=== PATIENT | female | born 1965 | race African-American/Black ===

== ENCOUNTER 2016-11-04 04:08 | Inpatient (IN) ==
[2016-11-04] MEDS ORDERED: ONDANSETRON 4 MG/2 ML VIAL IV STA (05:13)
[2016-11-04] MEDS ORDERED: SODIUM CHLORIDE 0.9% 1,000 ML IV STA (05:13)
[2016-11-04] MEDS ORDERED: ONDANSETRON 4 MG/2 ML VIAL ONE (05:30)
--- NOTE | 2016-11-04 05:36 | Emergency Department Note ---
Von Rinaldi Kasabria, am scribing for, and in the presence of, Jaziel Ivan MD 05:17. Moncho Rinaldi Robert M, MD, personally performed the services described in this documentation, ascribed by Val Longoria in my presence, and it is both accurate and complete . Arrival - Arrival Chief Complaint: Abdominal / Flank Pain Stated Complaint: pain in stomach ED Nursing Triage Note: C/C upper abd pain, N/V, hx of pancreatitis Mode of Arrival: Ambulatory Limitations: No Limitations Source: Patient Time Seen by Provider: 11/04/16 05:11 - History of Present Illness HPI Narrative: Pt is a 51 y/o black female presenting to the ED with c/o epigastric tenderness , nausea, and vomiting that onset Wednesday. She states she was given steroids for her cough and congestion on Wednesday. She denies fever, chills, diarrhea, back pain, hematochezia, and dysuria. Pt has a PMHx of pancreatitis. She has a social hx of smoking. Her PMHx consist of diabetes and HTN in which she is compliant with her medications. Consistency: constant Severity: moderate Allergies/Adverse Reactions: Allergies Allergy/AdvReac Type Severity Reaction Status Date / Time No Known Allergies Allergy Verified 11/04/16 04:23 Home Medications: Home Medications Medication Instructions Recorded Confirmed Type Insulin Detemir [Levemir] 60 unit SUBCUT DAILY 11/03/16 11/04/16 History Metformin HCl 850 mg PO TID 11/03/16 11/04/16 History Citalopram [CeleXA] 40 mg PO DAILY 11/04/16 11/04/16 History Gabapentin 100 mg PO TID 11/04/16 11/04/16 History Lisinopril/Hydrochlorothiazide 1 each PO DAILY 11/04/16 11/04/16 History [Lisinopril-Hctz 10-12.5 mg Tab] Loratadine 10 mg PO DAILY PRN 11/04/16 11/04/16 History Omeprazole [Prilosec] 40 mg PO BEDTIME 11/04/16 11/04/16 History Pravastatin [Pravachol] 40 mg PO BEDTIME 11/04/16 11/04/16 History Review of System - Review of System 12 point system: reviewed and no additional remarkable complaints except as stated - Review of System Constitutional: Absent: chills, fever, weakness Eyes: Absent: vision change Head/Ears/Nose/Throat: Absent: earache, nasal drainage, sore throat Respiratory: Absent: cough, wheezing Cardiovascular: Absent: chest pain, dyspnea on exertion, syncope Gastrointestinal: Present: abdominal pain (mild epigastric tenderness ), nausea , vomiting. Absent: diarrhea Genitourinary female: Absent: dysuria Musculoskeletal: Absent: arm pain, back pain, leg pain, neck pain Skin: Absent: rash Neurological: Absent: headache, weakness, confusion, abnormal gait, vertigo Psychiatric: Absent: anxiety Endocrine: Absent: fatigue Hematological/Lymphatic: Absent: easy bleeding Allergic/Immunologic: Absent: facial swelling Medical,Surgical,& Family Hx - Medical History Cardio: History of: Hypertension Endocrine: History of: Diabetes Mellitus (IDDM), Diabetes Mellitus (NIDDM), Dyslipidemia Gastrointestinal: History of: GI Problems (pancreatitis) - Social History Smoking Status: Smoker, status unknown Frequency of Alcohol Use: Occasionally Type of Drug Use: Marijuana Exam Vital Signs: Vital Signs Temperature 97.5 F L 11/04/16 04:25 Pulse Rate 82 11/04/16 04:25 Respiratory Rate 16 11/04/16 04:25 Blood Pressure 100/63 11/04/16 04:25 O2 Sat by Pulse Oximetry 97 11/04/16 04:18 - General General appearance: alert, in no apparent distress - Head Head exam: Present: atraumatic, normocephalic, normal inspection - Eye Eye exam: Present: normal appearance, PERRL, EOMI - ENT ENT exam: Present: normal exam, normal oropharynx, mucous membranes moist, TM's normal bilaterally, normal external ear exam - Neck Neck exam: Present: normal inspection, full ROM, trachea midline. Absent: tenderness - Chest Chest inspection: Present: normal inspection, symmetric chest wall rise. Absent : tenderness - Respiratory Respiratory exam: Present: normal lung sounds bilaterally - Cardiovascular Cardiovascular exam: Present: regular rate, normal rhythm, normal heart sounds. Absent: bradycardia, tachycardia - Abdominal Exam Abdominal exam: Present: soft, tenderness (mild epigastric ), normal bowel sounds. Absent: distention, guarding, rebound - Extremities Exam Extremities exam: Present: normal inspection, full ROM, normal capillary refill. Absent: tenderness, pedal edema, calf tenderness - Back Exam Back exam: Present: normal inspection, full ROM. Absent: tenderness - Neurological Exam Neurological exam: Present: alert, oriented X3, CN II-XII intact, normal gait, reflexes normal - Psychiatric Psychiatric exam: Present: normal affect, normal mood - Skin Skin exam: Present: warm, dry, intact, normal color. Absent: rash, diaphoresis , erythema Course - Consultations Consultation #1: Dr. Kishan Padilla will evaluate and admit the patient. Time: 06:04 Results - Labs CBC & BMP: 11/04/16 04:46 11/04/16 04:38 Lab Results: I have reviewed the patients labs Labs: Lab Results WBC 12.9 T/CUMM (4-12) H 11/04/16 04:46 RBC 3.83 MC/CUMM (3.8-5.5) 11/04/16 04:46 Hgb 12.0 GM/DL (12.0-16.0) 11/04/16 04:46 Hct 36.2 VOL% (35.7-47.0) 11/04/16 04:46 MCV 94.5 FL (87-102) 11/04/16 04:46 MCH 31 PG (27-34) 11/04/16 04:46 MCHC 33.1 GM/DL (32-36) 11/04/16 04:46 RDW 13.7 % (9.3-17.3) 11/04/16 04:46 Plt Count 309 T/CUMM (130-400) 11/04/16 04:46 MPV 10.1 FL (9.6-12.0) 11/04/16 04:46 Neut % (Auto) 59.8 % (38.7-73.9) 11/04/16 04:46 Lymph % (Auto) 30.6 % (21.3-54.2) 11/04/16 04:46 [place] % (Auto) 8.3 % (1.7-12.7) 11/04/16 04:46 Eos % (Auto) 0.8 % (0.00-10.9) 11/04/16 04:46 Baso % (Auto) 0.2 % (0.0-0.8) 11/04/16 04:46 Neut # (Auto) 7.7 10*3/uL (1.4-7.4) H 11/04/16 04:46 Lymph # (Auto) 4.0 10*3/uL (1.4-4.0) 11/04/16 04:46 Kaufman # (Auto) 1.1 10*3/uL (0.11-0.8) H 11/04/16 04:46 Eos # (Auto) 0.1 10*3/uL (0.0-0.87) 11/04/16 04:46 Baso # (Auto) 0.0 10*3/uL (0.0-0.2) 11/04/16 04:46 Immature Gran % 0.3 % 11/04/16 04:46 Nucleated RBC % 0.0 /100WBC 11/04/16 04:46 Immature Gran # 0.04 # 11/04/16 04:46 Nucleated RBCs # 0.00 10*3/uL 11/04/16 04:46 Sodium 140 MMOL/L (136-145) 11/04/16 04:38 Potassium 4.0 MMOL/L (3.5-5.1) 11/04/16 04:38 Chloride 103 MMOL/L (98-107) 11/04/16 04:38 Carbon Dioxide 27 MMOL/L (21-32) 11/04/16 04:38 Anion Gap 14.0 MMOL/L (5.0-15.0) 11/04/16 04:38 BUN 17 MG/DL (7-18) 11/04/16 04:38 Creatinine 1.10 MG/DL (0.55-1.02) H 11/04/16 04:38 GFR Calculation 71 ML/MIN 11/04/16 04:38 BUN/Creatinine Ratio 15.00 RATIO (6.00-20.00) 11/04/16 04:38 Glucose 193 MG/DL (74-106) H 11/04/16 04:38 Calculated Osmolality 285.4 MOS/KG (273-304) 11/04/16 04:38 Calcium 9.6 MG/DL (8.5-10.1) 11/04/16 04:38 Magnesium 1.9 MG/DL (1.8-2.4) 11/04/16 04:38 Total Bilirubin 0.40 MG/DL (0.2-1.0) 11/04/16 04:38 AST 10 U/L (0-37) 11/04/16 04:38 ALT 18 U/L (13-56) 11/04/16 04:38 Alkaline Phosphatase 51 U/L (45-117) 11/04/16 04:38 Total Protein 8.3 G/DL (6.4-8.3) 11/04/16 04:38 Albumin 3.9 G/DL (3.4-5.0) 11/04/16 04:38 Globulin 4.4 G/DL (2.3-3.5) H 11/04/16 04:38 Albumin/Globulin Ratio 0.8 RATIO (1.1-2.2) L 11/04/16 04:38 Amylase 121 U/L (25-115) H 11/04/16 04:38 Lipase 996.0 U/L (73-393) H 11/04/16 04:38 Urine Color Yellow (Yellow) 11/04/16 04:38 Urine Appearance Slightly hazy (Clear) 11/04/16 04:38 Urine pH 5.0 (4.5-8.0) 11/04/16 04:38 Ur Specific [place] 1.011 (1.001-1.035) 11/04/16 04:38 Urine Protein Negative MG/DL 11/04/16 04:38 Urine Glucose (UA) Negative mg/dL (Negative) 11/04/16 04:38 Urine Ketones Negative mg/dL (Negative) 11/04/16 04:38 Urine Blood Negative mg/dL (Negative) 11/04/16 04:38 Urine Nitrate Negative (Negative) 11/04/16 04:38 Urine Bilirubin Negative mg/dL (Negative) 11/04/16 04:38 Urine Urobilinogen < 2.0 EU/DL (0.2-1.0) H 11/04/16 04:38 Urine Leukocytes Negative Mary/ul (Negative) 11/04/16 04:38 Urine RBC <1 /HPF (0-4) 11/04/16 04:38 Urine WBC 1 /HPF (0-6) 11/04/16 04:38 Ur Squamous Epith Cells Occasional /HPF (0-10) 11/04/16 04:38 Urine Bacteria Occasional /HPF (Few) 11/04/16 04:38 Urine Mucus Occasional /LPF (Occasional) 11/04/16 04:38 Ur Culture Indicated? Not indicated 11/04/16 04:38 Disposition Clinical Impression: Pancreatitis Case discussed with: patient, patient's family Disposition: Still a Patient Condition: Stable Instructions: Pancreatitis (ED) Time of Disposition: 06:04
[2016-11-04 05:50] LABS: Apearance,Urine Slightly Hazy (Clear); Bacteria,Urine Occasional /HPF (Few); Bilirubin,Urine Negative (Negative); Blood, Urine Negative (Negative); Glucose,Urine (UA) Negative (Negative); Ketones,Urine Negative (Negative); Mucus,Urine Occasional /LPF (Occasional); Nitrite,Urine Negative (Negative); Protein,Urine Negative; RBC,Urine <1 /HPF (0-4); Squamous Epithelial Cell,Urine Occasional /HPF (0-10); Urine Color Yellow (Yellow); Urine Specific Gravity 1.011 (1.001-1.035); Urine Urobilinogen < 2.0 EU/DL (0.2-1.0); WBC,Urine 1 /HPF (0-6)
[2016-11-04 05:51] LABS: Basophils % 0.2 % (0.0-0.8); Eosinophils # 0.1 10*3/uL (0.0-0.87); Eosinophils % 0.8 % (0.00-10.9); Hematocrit 36.2 VOL% (35.7-47.0); Immature Granulocytes % 0.3 %; Immature Granulocytes Absolute 0.04 #; Lymphocytes % 30.6 % (21.3-54.2); Mean Corpuscular HGB Conc 33.1 GM/DL (32-36); Mean Corpuscular Hemoglobin 31 PG (27-34); Mean Corpuscular Volume 94.5 FL (87-102); Mean Platelet Volume 10.1 FL (9.6-12.0); Monocytes # 1.1 10*3/uL (0.11-0.8); Monocytes % 8.3 % (1.7-12.7); Neutrophils # 7.7 10*3/uL (1.4-7.4); Neutrophils % 59.8 % (38.7-73.9); Platelet Count 309 T/CUMM (130-400); Red Blood Count 3.83 MC/CUMM (3.8-5.5); Red Cell Distribution Width 13.7 % (9.3-17.3); White Blood Count 12.9 T/CUMM (4-12)
[2016-11-04 05:57] LABS: Albumin 3.9 G/DL (3.4-5.0); Bilirubin,Total 0.4 MG/DL (0.2-1.0); Calcium 9.6 MG/DL (8.5-10.1); Magnesium 1.9 MG/DL (1.8-2.4); Osmolality,Calculated 285.4 MOS/KG (273-304); Total Protein 8.3 G/DL (6.4-8.3)
[2016-11-04] MEDS ORDERED: DEXTROSE 50% 25 GM/50 ML VIAL IV PRN (06:20)
[2016-11-04] MEDS ORDERED: GLUCAGON 1 MG VIAL IM PRN (06:20)
[2016-11-04] MEDS ORDERED: LORazepam 2 MG/1 ML VIAL IV PRN (06:20)
--- NOTE | 2016-11-04 06:30 | Hospitalist History & Physical ---
Assessment and Plan (1) Diabetes Status: Acute Current Visit: Yes (2) Hypertension Status: Acute Current Visit: Yes (3) Dyslipidemia Status: Acute Current Visit: Yes (4) Depression Status: Acute Current Visit: Yes (5) Pancreatitis Status: Acute Assessment and plan: Regarding I plan for this patient we'll be admitting her to our service. Nothing by mouth except for meds give her IV fluids check her lipase in the morning. Continue her home meds as appropriate. Hold her long-acting insulin and give sliding scale for now. Current Visit: Yes History of Present Illness Chief complaint: epigastric pain History of present illness: Ms. Wilson is a 51 year old female with past medical history of previous bouts of pancreatitis presents with abdominal pain. Patient reports that she's been having a 3 day history of this abdominal pain. She said that it reminded her of her previous bouts of pancreatitis. She has not drank in at least 2 weeks. She use to be a heavy drinker but has cut back significantly. She says that her epigastric pain gets severe at times. And causes her to have nausea and vomiting. Patient came up to the hospital for further evaluation. I was consulted to admit her Home Medications Medication Instructions Recorded Confirmed Type Insulin Detemir [Levemir] 60 unit SUBCUT DAILY 11/03/16 11/04/16 History Metformin HCl 850 mg PO TID 11/03/16 11/04/16 History Citalopram [CeleXA] 40 mg PO DAILY 11/04/16 11/04/16 History Gabapentin 100 mg PO TID 11/04/16 11/04/16 History Lisinopril/Hydrochlorothiazide 1 each PO DAILY 11/04/16 11/04/16 History [Lisinopril-Hctz 10-12.5 mg Tab] Loratadine 10 mg PO DAILY PRN 11/04/16 11/04/16 History Omeprazole [Prilosec] 40 mg PO BEDTIME 11/04/16 11/04/16 History Pravastatin [Pravachol] 40 mg PO BEDTIME 11/04/16 11/04/16 History Allergies Allergy/AdvReac Type Severity Reaction Status Date / Time No Known Allergies Allergy Verified 11/04/16 04:23 Medical,Surgical,& Family Hx - Medical History Cardio: History of: Hypertension Endocrine: History of: Diabetes Mellitus (IDDM), Diabetes Mellitus (NIDDM), Dyslipidemia Gastrointestinal: History of: GI Problems (pancreatitis) - Surgical History Additional Surgical History: None - Family History Family History: Reports;: Family Hypertension - Social History Smoking Status: Smoker, status unknown Frequency of Alcohol Use: Occasionally Type of Drug Use: Marijuana 12 point system: reviewed and no additional remarkable complaints except as stated Exam - Constitutional Vitals: Period Temp Pulse Resp BP Sys/Alegria Pulse Ox Last 24 Hr 97.5 F-97.5 F 82-82 16-16 100-100/63-63 97 General appearance: normal weight - Head Head exam: Present: normal inspection - Eye Eye exam: Present: EOMI Pupils: Present: TONJA - ENT ENT exam: Present: normal exam - Neck Neck exam: Present: normal inspection - Respiratory Respiratory exam: Present: clear to auscultation bilaterally - Cardiovascular Cardiovascular exam: Present: regular rate and rhythm - GI/Abdominal GI/Abdominal exam: Present: normal bowel sounds, tenderness (epigastric), soft. Absent: rebound - Extremities Exam Extremities exam: Present: normal inspection - Back Exam Back exam: Present: normal inspection - Neurological Exam Neurological exam: Present: alert, oriented X3 - Psychiatric Psychiatric exam: Present: normal affect Results - Labs CBC & BMP: 11/04/16 04:46 11/04/16 04:38
[2016-11-04] MEDS ORDERED: LORATADINE 10 MG TABLET PO PRN (06:34)
[2016-11-04] MEDS: SODIUM CHLORIDE 0.9% 1,000 ML IV SCH ×3 (10:48→19:13)
[2016-11-04] MEDS: GABAPENTIN 100 MG CAPSULE PO SCH ×3 (10:49→22:40)
[2016-11-04] MEDS: FOLIC ACID 1 MG TABLET PO SCH (10:49)
[2016-11-04] MEDS: CITALOPRAM 40 MG TABLET PO SCH (10:49)
[2016-11-04] MEDS: THIAMINE 100 MG TABLET PO SCH (10:49)
[2016-11-04] MEDS: MULTIVITAMIN (CENTRUM) TABLET PO SCH (10:49)
[2016-11-04] MEDS: ENOXAPARIN 40 MG/0.4 ML SYRINGE SUBCUT SCH (10:50)
[2016-11-04] MEDS: MORPHINE 2 MG/1 ML SYRINGE IV PRN ×2 (12:22→19:11)
[2016-11-04] MEDS: INSULIN REGULAR 100 UNIT/ML SUBCUT SCH ×2 (13:16→18:29)
--- NOTE | 2016-11-04 16:29 | Hospitalist Progress Note ---
Hospitalist: Subjective Interval history: Patient seen and examined did not seem exquisitely tender in her abdomen to me. Already wanted something to eat so we started her on clear liquids. Recheck her lipase in a.m. see note by partner. Exam - Constitutional Vitals: Period Temp Pulse Resp BP Sys/Alegria Pulse Ox Last 24 Hr 98.2 F-98.4 F 69-77 16-20 118-131/78-90 98-100 Results - Labs CBC & BMP: 11/04/16 04:46 11/04/16 04:38 Specialty Discharge - Follow Up or Referrals
[2016-11-04] MEDS: ONDANSETRON 4 MG/2 ML VIAL IV PRN (19:11)
[2016-11-04] MEDS ORDERED: PRAVASTATIN 40 MG TABLET PO SCH (21:00)
[2016-11-04] MEDS ORDERED: PANTOPRAZOLE 40 MG TABLET PO SCH (21:00)
[2016-11-05] MEDS: SODIUM CHLORIDE 0.9% 1,000 ML IV SCH ×2 (03:26→12:01)
[2016-11-05] MEDS: INSULIN REGULAR 100 UNIT/ML SUBCUT SCH ×3 (03:27→12:38)
[2016-11-05] MEDS: ONDANSETRON 4 MG/2 ML VIAL IV PRN ×2 (04:06→09:38)
[2016-11-05] MEDS: MORPHINE 2 MG/1 ML SYRINGE IV PRN ×2 (04:06→09:34)
[2016-11-05 06:41] LABS: Eosinophils % 0.8 % (0.00-10.9); Mean Corpuscular Hemoglobin 31 PG (27-34); Red Cell Distribution Width 13.5 % (9.3-17.3)
[2016-11-05 07:00] LABS: Basophils % 0.2 % (0.0-0.8); Eosinophils # 0.1 10*3/uL (0.0-0.87); Hematocrit 29.3 VOL% (35.7-47.0); Immature Granulocytes % 0.4 %; Immature Granulocytes Absolute 0.04 #; Lymphocytes # 3.9 10*3/uL (1.4-4.0); Lymphocytes % 37.1 % (21.3-54.2); Mean Corpuscular HGB Conc 33.1 GM/DL (32-36); Mean Corpuscular Volume 94.5 FL (87-102); Mean Platelet Volume 10.1 FL (9.6-12.0); Monocytes % 9.6 % (1.7-12.7); Neutrophils # 5.5 10*3/uL (1.4-7.4); Neutrophils % 51.9 % (38.7-73.9); Platelet Count 272 T/CUMM (130-400); White Blood Count 10.6 T/CUMM (4-12)
[2016-11-05 07:07] LABS: Hemoglobin 9.7 GM/DL (12.0-16.0)
[2016-11-05 07:26] LABS: Albumin 3.3 G/DL (3.4-5.0); Calcium 8.7 MG/DL (8.5-10.1); Potassium 4.9 MMOL/L (3.5-5.1); Total Protein 6.3 G/DL (6.4-8.3)
[2016-11-05] MEDS: GABAPENTIN 100 MG CAPSULE PO SCH (08:40)
[2016-11-05] MEDS: MULTIVITAMIN (CENTRUM) TABLET PO SCH (08:40)
[2016-11-05] MEDS: THIAMINE 100 MG TABLET PO SCH (08:40)
[2016-11-05] MEDS: FOLIC ACID 1 MG TABLET PO SCH (08:41)
[2016-11-05] MEDS: CITALOPRAM 40 MG TABLET PO SCH (08:41)
[2016-11-05] MEDS: ENOXAPARIN 40 MG/0.4 ML SYRINGE SUBCUT SCH (08:41)
[2016-11-05] MEDS ORDERED: BISACODYL 5 MG TABLET PO SCH (11:00)
[2016-11-05] MEDS ORDERED: POLYETHYLENE GLYCOL POWDER 255 GM BOTTLE PO ONE (11:00)
--- NOTE | 2016-11-05 12:14 | Discharge Summary ---
Hospital Course - Hospital Course Hospital Course: 51-year-old -[place] female who presented to the emergency room with abdominal pain. Patient has a history of alcohol abuse in the distant past but she is no longer drinking. Patient had elevated lipase on admission of 996 and was diagnosed with pancreatitis. We started her on a clear liquid diet and her lipase came down to 690. Patient is tolerating diet well and would like to go home. Patient does have insulin-dependent diabetes and blood sugars have been well managed with significantly less insulin and metformin that she is currently on. She had a recent had a steroid injection elevated her sugar thought to have inflamed her pancreatitis. I would repeat her lipid profile just to ensure that her triglycerides are well controlled as an outpatient. - Time spent with patient Time with patient DS: Less than 30 minutes Specialty Discharge - Follow Up or Referrals Discharge Plan - Discharge Data Disposition: Disch To Home/Self Care Condition at Discharge: Stable Discharge Diet: other (soft diet ) Activity: resume usual activities as tolerated Hygiene: no restrictions Weight Bearing at Discharge: full weight bearing - Discharge Medications New Multivitamin (Centrum) [Centrum Tab] 1 tablet PO DAILY tablet Folic Acid Tab 1 mg PO DAILY tablet Thiamine Tab [Vitamin B1 Tab] 100 mg PO DAILY tablet Continue Gabapentin 100 mg PO TID Pravastatin [Pravachol] 40 mg PO BEDTIME Citalopram [CeleXA] 40 mg PO DAILY HYDROcodone/ACETAMIN 10-325 [[place]anger 10-325] 1 tablet PO Q4H #30 tablet Omeprazole [Prilosec] 40 mg PO BEDTIME Loratadine 10 mg PO DAILY PRN PRN Reason: Allergy Symptoms Changed Insulin Detemir [Levemir] 20 unit SUBCUT DAILY #0 Metformin HCl 850 mg PO BID #0 Discontinued Lisinopril/Hydrochlorothiazide [Lisinopril-Hctz 10-12.5 mg Tab] 1 each PO DAILY - Follow Up or Referral Follow Up: pmd, [Other] - 2 Weeks - Forms/Instructions Instructions: Pancreatitis (ED) Exam - Constitutional Vitals: Period Temp Pulse Resp BP Sys/Alegria Pulse Ox Last 24 Hr 97.9 F-99.0 F 70-79 18-20 121-136/78-88 95-99 General appearance: normal weight, no acute distress - Respiratory Respiratory exam: Present: clear to auscultation bilaterally. Absent: rales, wheezes - Cardiovascular Cardiovascular exam: Present: regular rate and rhythm. Absent: systolic murmur - GI/Abdominal GI/Abdominal exam: Present: normal bowel sounds, soft. Absent: tenderness - Extremities Exam Extremities exam: Present: normal inspection, normal capillary refill Discharge Results Labs on day of discharge: Labs from last 24 hours 11/05/16 11/05/16 11/05/16 11:07 06:27 06:27 WBC RBC Hgb Hct MCV MCH MCHC RDW Plt Count MPV Neut % (Auto) Lymph % (Auto) [place] % (Auto) Eos % (Auto) Baso % (Auto) Neut # (Auto) Lymph # (Auto) [place] # (Auto) Eos # (Auto) Baso # (Auto) Immature Gran % Nucleated RBC % Immature Gran # Nucleated RBCs # Sodium 143 Potassium 4.9 Chloride 108 H Carbon Dioxide 23 Anion Gap 16.9 H BUN 11 Creatinine 0.80 GFR Calculation 104 BUN/Creatinine Ratio 13.00 Glucose 178 H POC Glucose 292 H Calculated Osmolality 287.0 Calcium 8.7 Total Bilirubin 1.00 AST 12 ALT 17 Alkaline Phosphatase 45 Total Protein 6.3 L Albumin 3.3 L Globulin 3.0 Albumin/Globulin Ratio 1.1 Lipase 690.0 H D 11/05/16 11/05/16 11/05/16 06:27 05:49 00:04 WBC 10.6 RBC 3.10 L Hgb 9.7 L D Hct 29.3 L MCV 94.5 MCH 31 MCHC 33.1 RDW 13.5 Plt Count 272 MPV 10.1 Neut % (Auto) 51.9 Lymph % (Auto) 37.1 [place]kes % (Auto) 9.6 Eos % (Auto) 0.8 Baso % (Auto) 0.2 Neut # (Auto) 5.5 Lymph # (Auto) 3.9 [place]kes # (Auto) 1.0 H Eos # (Auto) 0.1 Baso # (Auto) 0.0 Immature Gran % 0.4 Nucleated RBC % 0.0 Immature Gran # 0.04 Nucleated RBCs # 0.00 Sodium Potassium Chloride Carbon Dioxide Anion Gap BUN Creatinine GFR Calculation BUN/Creatinine Ratio Glucose POC Glucose 182 H 94 Calculated Osmolality Calcium Total Bilirubin AST ALT Alkaline Phosphatase Total Protein Albumin Globulin Albumin/Globulin Ratio Lipase 11/04/16 11/04/16 11/04/16 19:51 18:16 12:34 WBC RBC Hgb Hct MCV MCH MCHC RDW Plt Count MPV Neut % (Auto) Lymph % (Auto) [place] % (Auto) Eos % (Auto) Baso % (Auto) Neut # (Auto) Lymph # (Auto) [place] # (Auto) Eos # (Auto) Baso # (Auto) Immature Gran % Nucleated RBC % Immature Gran # Nucleated RBCs # Sodium Potassium Chloride Carbon Dioxide Anion Gap BUN Creatinine GFR Calculation BUN/Creatinine Ratio Glucose POC Glucose 217 H 314 H 164 H Calculated Osmolality Calcium Total Bilirubin AST ALT Alkaline Phosphatase Total Protein Albumin Globulin Albumin/Globulin Ratio Lipase DS: Provider Date of admission: 11/04/16 06:18 Primary care physician: . No PCP Attending physician on admission: Carolyn Jenkins MD Discharging clinician: Carolyn Jenkins MD
[2016-11-05 12:37] VITALS: BP 130/81
== END 2016-11-05 13:37 | disposition home or self-care (01) | DRG 440 ==
LOC: N.ED 04:08 → N.EDINP 06:18 → N.2E 06:49
PROVIDERS: ADMIT Internal Medicine; ATTEND Internal Medicine

== ENCOUNTER 2017-10-18 13:30 | Inpatient (IN) ==
[2017-10-18 14:17] LABS: Basophils % 0.3 % (0.0-0.8); Eosinophils # 0.1 10*3/uL (0.0-0.87); Eosinophils % 0.5 % (0.00-10.9); Hematocrit 36.8 VOL% (35.7-47.0); Hemoglobin 12.5 GM/DL (12.0-16.0); Immature Granulocytes % 0.3 %; Immature Granulocytes Absolute 0.03 #; Lymphocytes # 3.7 10*3/uL (1.4-4.0); Mean Corpuscular Hemoglobin 31 PG (27-34); Mean Corpuscular Volume 92.5 FL (87-102); Mean Platelet Volume 11.5 FL (9.6-12.0); Monocytes # 0.7 10*3/uL (0.11-0.8); Monocytes % 6.9 % (1.7-12.7); Platelet Count 267 T/CUMM (130-400); Red Blood Count 3.98 MC/CUMM (3.8-5.5); Red Cell Distribution Width 13.2 % (9.3-17.3); White Blood Count 9.4 T/CUMM (4-12)
[2017-10-18 14:36] LABS: Alanine Aminotransferase 14 U/L (13-56); Albumin 3.7 G/DL (3.4-5.0); Alkaline Phosphatase 58 U/L (45-117); Aspartate Amino Transferase 9 U/L (0-37); Bilirubin,Total < 0.39 MG/DL (0.2-1.0); Blood Urea Nitrogen 9 MG/DL (7-18); Calcium 9.3 MG/DL (8.5-10.1); Osmolality,Calculated 299.8 MOS/KG (273-304); Potassium 4.1 MMOL/L (3.5-5.1); Sodium 130 MMOL/L (136-145); Total Protein 7.2 G/DL (6.4-8.3)
[2017-10-18 14:38] LABS: Glucose 839 MG/DL (74-106)
[2017-10-18 15:03] LABS: Apearance,Urine CLEAR (Clear); Bilirubin,Urine Negative (Negative); Blood, Urine Negative (Negative); Glucose,Urine (UA) >=500 mg/dL (Negative); Ketones,Urine Negative (Negative); Mucus,Urine Occasional /LPF (Occasional); Nitrite,Urine Negative (Negative); Protein,Urine Negative; RBC,Urine <1 /HPF (0-4); Squamous Epithelial Cell,Urine Occasional /HPF (0-10); Urine Color Straw (Yellow); Urine Specific Gravity 1.028 (1.001-1.035); Urine Urobilinogen < 2.0 EU/DL (0.2-1.0); WBC,Urine <1 /HPF (0-6)
[2017-10-18] MEDS ORDERED: INSULIN REGULAR 100 UNIT/ML ONE (18:00)
[2017-10-18] MEDS ORDERED: INSULIN REGULAR 100 UNIT/ML SUBCUT ONE (18:00)
[2017-10-18] MEDS ORDERED: SODIUM CHLORIDE 0.9% 1,000 ML IV STA ×2 (18:05→18:14)
[2017-10-18] MEDS ORDERED: SODIUM CHLORIDE 0.9% 1,000 ML IV ONE (19:30)
[2017-10-18] MEDS ORDERED: MAGNESIUM SULF RIDER 2 GM in PREMIX 1 EACH IV PRN (19:30)
[2017-10-18] MEDS ORDERED: INSULIN REGULAR 100 UNIT/ML IV ONE (19:30)
[2017-10-18] MEDS ORDERED: SODIUM BICARB INJ 100 MEQ in STERILE WATER INJ 400 ML IV PRN (19:30)
[2017-10-18] MEDS ORDERED: POTASSIUM CHLORIDE RIDER 10 MEQ in PREMIX 1 EACH IV PRN (19:30)
[2017-10-18] MEDS ORDERED: MAGNESIUM SULF RIDER 4 GM in PREMIX 1 EACH IV PRN (19:30)
[2017-10-18] MEDS ORDERED: DEXTROSE 50% 25 GM/50 ML VIAL IV PRN ×3 (19:30)
[2017-10-18] MEDS ORDERED: SODIUM PHOSPHATE INJ 18.7 MMOL in SODIUM CHLORIDE 0.9% 250 ML IV PRN (19:30)
[2017-10-18] MEDS ORDERED: INSULIN REGULAR DRIP 100 ML IV SCH ×2 (19:30)
[2017-10-18] MEDS ORDERED: GLUCAGON 1 MG VIAL IM PRN (19:30)
[2017-10-18] MEDS ORDERED: LORATADINE 10 MG TABLET PO PRN (19:35)
[2017-10-18] MEDS ORDERED: FLUTICASONE 50 MCG NASAL SPRAY 16 GM BOTTLE BOTH NARES PRN (19:35)
[2017-10-18 20:23] LABS: Allen Test Positive; Pt O2 Delivery Device Room Air
[2017-10-18 20:24] LABS: ABG Base Excess -0.2 MMOL/L (-2.5-2.5); ABG HCO3 24.2 MMOL/L (20-26); ABG Oxygen Saturation 97.4 % (95-100); ABG PCO2 41.2 MM HG (35-48); ABG PH 7.388 (7.35-7.45); ABG PO2 91.6 MM HG (80-95); ABG TCO2 22.2 MMOL/L (23-27)
[2017-10-18] MEDS: GABAPENTIN 100 MG CAPSULE PO SCH (21:00)
[2017-10-18 21:49] LABS: Magnesium 1.6 MG/DL (1.8-2.4)
[2017-10-18 21:57] LABS: Troponin I Only < 0.015 NG/ML (0.00-0.045)
[2017-10-18 22:23] LABS: Apearance,Urine CLEAR (Clear); Bilirubin,Urine Negative (Negative); Blood, Urine Negative (Negative); Glucose,Urine (UA) >=500 mg/dL (Negative); Ketones,Urine Negative (Negative); Mucus,Urine Occasional /LPF (Occasional); Nitrite,Urine Negative (Negative); Protein,Urine Negative; RBC,Urine <1 /HPF (0-4); Squamous Epithelial Cell,Urine Occasional /HPF (0-10); Urine Color Colorless (Yellow); Urine Specific Gravity 1.025 (1.001-1.035); Urine Urobilinogen < 2.0 EU/DL (0.2-1.0)
[2017-10-18 23:13] LABS: Calcium 9.8 MG/DL (8.5-10.1); Osmolality,Calculated 271.5 MOS/KG (273-304); Potassium 3.2 MMOL/L (3.5-5.1)
[2017-10-18 23:37] LABS: Basophils % 0.1 % (0.0-0.8); Eosinophils # 0.2 10*3/uL (0.0-0.87); Eosinophils % 1.2 % (0.00-10.9); Hematocrit 33.7 VOL% (35.7-47.0); Hemoglobin 11.3 GM/DL (12.0-16.0); Immature Granulocytes % 0.4 %; Immature Granulocytes Absolute 0.06 #; Lymphocytes # 7.1 10*3/uL (1.4-4.0); Lymphocytes % 46.3 % (21.3-54.2); Mean Corpuscular HGB Conc 33.5 GM/DL (32-36); Mean Corpuscular Hemoglobin 31 PG (27-34); Mean Corpuscular Volume 92.8 FL (87-102); Mean Platelet Volume 10.6 FL (9.6-12.0); Monocytes # 1.2 10*3/uL (0.11-0.8); Monocytes % 7.9 % (1.7-12.7); Neutrophils # 6.7 10*3/uL (1.4-7.4); Neutrophils % 44.1 % (38.7-73.9); Platelet Count 270 T/CUMM (130-400); Red Blood Count 3.63 MC/CUMM (3.8-5.5); Red Cell Distribution Width 12.9 % (9.3-17.3); White Blood Count 15.3 T/CUMM (4-12)
[2017-10-18] MEDS ORDERED: DEXTROSE 50% 25 GM/50 ML SYRINGE IV ONE (23:54)
[2017-10-18 23:58] LABS: Atypical Lymphocytes Few; Calcium 9.4 MG/DL (8.5-10.1); Osmolality,Calculated 275.3 MOS/KG (273-304); Potassium 2.6 MMOL/L (3.5-5.1)
[2017-10-19] MEDS ORDERED: SODIUM CHLORIDE 0.9% 1,000 ML IV SCH (00:31)
[2017-10-19] MEDS ORDERED: POTASSIUM CHLORIDE RIDER 100 ML IV ONE (03:22)
[2017-10-19 04:53] LABS: Calcium 9.3 MG/DL (8.5-10.1); Osmolality,Calculated 276.7 MOS/KG (273-304); Potassium 4.1 MMOL/L (3.5-5.1)
[2017-10-19 05:00] LABS: Magnesium 1.7 MG/DL (1.8-2.4)
[2017-10-19] MEDS ORDERED: MAGNESIUM SULF RIDER 50 ML IV ONE (05:47)
[2017-10-19 06:49] LABS: Basophils % 0.3 % (0.0-0.8); Eosinophils % 0.2 % (0.00-10.9); Hematocrit 35.7 VOL% (35.7-47.0); Hemoglobin 11.7 GM/DL (12.0-16.0); Immature Granulocytes % 0.5 %; Immature Granulocytes Absolute 0.07 #; Lymphocytes # 4.1 10*3/uL (1.4-4.0); Lymphocytes % 27.9 % (21.3-54.2); Mean Corpuscular HGB Conc 32.8 GM/DL (32-36); Mean Corpuscular Hemoglobin 31 PG (27-34); Mean Corpuscular Volume 93.9 FL (87-102); Monocytes # 0.8 10*3/uL (0.11-0.8); Monocytes % 5.6 % (1.7-12.7); Neutrophils # 9.5 10*3/uL (1.4-7.4); Neutrophils % 65.5 % (38.7-73.9); Platelet Count 253 T/CUMM (130-400); Red Cell Distribution Width 13.1 % (9.3-17.3); White Blood Count 14.5 T/CUMM (4-12)
[2017-10-19 07:07] LABS: Hypochromasia 1+; Microcytosis Slight
[2017-10-19 07:08] LABS: Platelet Estimate Normal
[2017-10-19] MEDS ORDERED: SODIUM CHLORIDE 0.9% 1,000 ML IV STA (08:42)
[2017-10-19] MEDS ORDERED: GABAPENTIN 100 MG CAPSULE ONE (08:54)
[2017-10-19] MEDS ORDERED: FLUCONAZOLE 200 MG TABLET ONE (08:54)
[2017-10-19] MEDS ORDERED: ENOXAPARIN 40 MG/0.4 ML SYRINGE ONE (08:54)
[2017-10-19] MEDS: CITALOPRAM 40 MG TABLET PO SCH (09:07)
[2017-10-19] MEDS: FOLIC ACID 1 MG TABLET PO SCH (09:07)
[2017-10-19] MEDS: FLUCONAZOLE 200 MG TABLET PO SCH ×2 (09:07)
[2017-10-19] MEDS: GABAPENTIN 100 MG CAPSULE PO SCH ×3 (09:08→21:49)
[2017-10-19] MEDS: ENOXAPARIN 40 MG/0.4 ML SYRINGE SUBCUT SCH (09:09)
[2017-10-19] MEDS: INSULIN GLARGINE 100 UNIT/ML SUBCUT SCH (09:19)
[2017-10-19] MEDS: PRAVASTATIN 40 MG TABLET PO SCH ×2 (10:49→21:50)
[2017-10-19] MEDS: NICOTINE 21 MG/24 HR PATCH TRANSDERM SCH (10:56)
[2017-10-19] MEDS: SODIUM CHLORIDE 0.9% 1,000 ML IV SCH (11:17)
[2017-10-19] MEDS: INSULIN REGULAR 100 UNIT/ML SUBCUT SCH ×3 (11:52→22:36)
[2017-10-19] MEDS: SODIUM CHLORIDE 0.45% 1,000 ML IV SCH (11:52)
[2017-10-19 12:42] LABS: Calcium 8.4 MG/DL (8.5-10.1); Osmolality,Calculated 280.8 MOS/KG (273-304); Potassium 4.1 MMOL/L (3.5-5.1)
[2017-10-19] MEDS: metFORMIN 850 MG TABLET PO SCH ×2 (14:40→21:48)
[2017-10-20] MEDS: SODIUM CHLORIDE 0.45% 1,000 ML IV SCH ×2 (08:40→12:40)
[2017-10-20] MEDS: INSULIN REGULAR 100 UNIT/ML SUBCUT SCH ×2 (08:40→11:52)
[2017-10-20] MEDS: NICOTINE 21 MG/24 HR PATCH TRANSDERM SCH (09:41)
[2017-10-20] MEDS: metFORMIN 850 MG TABLET PO SCH (09:44)
[2017-10-20] MEDS: GABAPENTIN 100 MG CAPSULE PO SCH (09:46)
[2017-10-20] MEDS: FLUCONAZOLE 200 MG TABLET PO SCH (09:46)
[2017-10-20] MEDS: CITALOPRAM 40 MG TABLET PO SCH (09:47)
[2017-10-20] MEDS: INSULIN GLARGINE 100 UNIT/ML SUBCUT SCH (09:49)
[2017-10-20] MEDS: FOLIC ACID 1 MG TABLET PO SCH (09:49)
[2017-10-20] MEDS: ENOXAPARIN 40 MG/0.4 ML SYRINGE SUBCUT SCH (09:50)
[2017-10-20 13:46] VITALS: BP 148/93
== END 2017-10-20 14:30 | disposition home or self-care (01) | DRG 639 ==
LOC: N.ED 13:30 → N.EDINP 19:20 → N.5E 10-19 09:50
PROVIDERS: ADMIT Internal Medicine; ATTEND Internal Medicine

== ENCOUNTER 2018-09-02 13:32 | Observation (INO) ==
[2018-09-02 14:59] LABS: Basophils % 0.3 % (0.0-0.8); Eosinophils # 0.1 10*3/uL (0.0-0.87); Eosinophils % 0.6 % (0.00-10.9); Hematocrit 37.6 VOL% (35.7-47.0); Hemoglobin 12.2 GM/DL (12.0-16.0); Immature Granulocytes % 0.3 %; Immature Granulocytes Absolute 0.03 #; Lymphocytes # 3.9 10*3/uL (1.4-4.0); Lymphocytes % 32.9 % (21.3-54.2); Mean Corpuscular HGB Conc 32.4 GM/DL (32-36); Mean Corpuscular Hemoglobin 31 PG (27-34); Mean Corpuscular Volume 94.2 FL (87-102); Mean Platelet Volume 10.2 FL (9.6-12.0); Monocytes # 0.8 10*3/uL (0.11-0.8); Monocytes % 6.9 % (1.7-12.7); Neutrophils # 7.1 10*3/uL (1.4-7.4); Platelet Count 360 T/CUMM (130-400); Red Blood Count 3.99 MC/CUMM (3.8-5.5); Red Cell Distribution Width 13.8 % (9.3-17.3)
[2018-09-02 15:28] LABS: Bilirubin,Total 0.5 MG/DL (0.2-1.0); Calcium 9.6 MG/DL (8.5-10.1); Osmolality,Calculated 290.9 MOS/KG (273-304); Potassium 4.2 MMOL/L (3.5-5.1); Total Protein 8.8 G/DL (6.4-8.3)
[2018-09-02] MEDS ORDERED: ONDANSETRON 4 MG/2 ML VIAL IV STA (15:48)
[2018-09-02] MEDS ORDERED: LACTATED RINGERS 1,000 ML IV ONE (15:49)
[2018-09-02] MEDS ORDERED: HYDROmorphone 2 MG/1 ML VIAL IM STA (15:49)
[2018-09-02] MEDS ORDERED: INSULIN REGULAR 100 UNIT/ML SUBCUT STA (15:50)
[2018-09-02] MEDS ORDERED: HYDROmorphone 2 MG/1 ML VIAL ONE (16:19)
[2018-09-02] MEDS ORDERED: ONDANSETRON 4 MG/2 ML VIAL ONE (16:19)
[2018-09-02] MEDS ORDERED: ACETAMINOPHEN 325 MG TABLET PO PRN (16:20)
[2018-09-02] MEDS ORDERED: PROMETHAZINE 25 MG/1 ML VIAL IM PRN (16:20)
[2018-09-02] MEDS ORDERED: ONDANSETRON 4 MG/2 ML VIAL IV PRN (16:20)
[2018-09-02] MEDS ORDERED: ENOXAPARIN 40 MG/0.4 ML SYRINGE SUBCUT SCH (16:30)
[2018-09-02] MEDS ORDERED: SODIUM CHLORIDE 0.9% 1,000 ML IV SCH ×2 (16:30→21:45)
[2018-09-02] MEDS ORDERED: INSULIN REGULAR 100 UNIT/ML ONE (16:47)
[2018-09-02] MEDS ORDERED: GLUCAGON 1 MG VIAL IM PRN (18:27)
[2018-09-02] MEDS ORDERED: FLUTICASONE 50 MCG NASAL SPRAY 16 GM BOTTLE BOTH NARES PRN (18:27)
[2018-09-02] MEDS ORDERED: LORATADINE 10 MG TABLET PO PRN (18:27)
[2018-09-02] MEDS ORDERED: DEXTROSE 50% 25 GM/50 ML VIAL IV PRN (18:27)
[2018-09-02] MEDS: INSULIN REGULAR 100 UNIT/ML SUBCUT SCH (19:10)
[2018-09-02] MEDS ORDERED: INSULIN GLARGINE 100 UNIT/ML SUBCUT SCH (21:00)
[2018-09-02] MEDS: GABAPENTIN 100 MG CAPSULE PO SCH (21:47)
[2018-09-02] MEDS: MORPHINE 4 MG/1 ML VIAL IV PRN (21:58)
[2018-09-02] MEDS: LACTATED RINGERS 1,000 ML IV SCH (23:42)
[2018-09-03] MEDS: INSULIN REGULAR 100 UNIT/ML SUBCUT SCH ×3 (00:55→12:43)
[2018-09-03] MEDS: MORPHINE 4 MG/1 ML VIAL IV PRN ×2 (05:42→09:49)
[2018-09-03] MEDS: LACTATED RINGERS 1,000 ML IV SCH (05:45)
[2018-09-03 06:43] LABS: Apearance,Urine Slightly Hazy (Clear); Bacteria,Urine Occasional /HPF (Few); Bilirubin,Urine Negative (Negative); Blood, Urine Negative (Negative); Glucose,Urine (UA) >=500 mg/dL (Negative); Ketones,Urine Negative (Negative); Mucus,Urine Occasional /LPF (Occasional); Nitrite,Urine Negative (Negative); Protein,Urine Negative; RBC,Urine 1 /HPF (0-4); Squamous Epithelial Cell,Urine Occasional /HPF (0-10); Urine Color Yellow (Yellow); Urine Specific Gravity 1.006 (1.001-1.035); Urine Urobilinogen < 2.0 EU/DL (0.2-1.0); WBC,Urine 2 /HPF (0-6)
[2018-09-03 06:59] LABS: Basophils % 0.1 % (0.0-0.8); Eosinophils # 0.1 10*3/uL (0.0-0.87); Eosinophils % 0.7 % (0.00-10.9); Immature Granulocytes % 0.3 %; Immature Granulocytes Absolute 0.03 #; Lymphocytes # 3.4 10*3/uL (1.4-4.0); Lymphocytes % 35.8 % (21.3-54.2); Mean Corpuscular HGB Conc 32.8 GM/DL (32-36); Mean Corpuscular Hemoglobin 31 PG (27-34); Mean Corpuscular Volume 94.2 FL (87-102); Mean Platelet Volume 10.2 FL (9.6-12.0); Monocytes # 0.8 10*3/uL (0.11-0.8); Monocytes % 8.9 % (1.7-12.7); Neutrophils # 5.1 10*3/uL (1.4-7.4); Neutrophils % 54.2 % (38.7-73.9); Red Cell Distribution Width 13.8 % (9.3-17.3); White Blood Count 9.4 T/CUMM (4-12)
[2018-09-03 07:07] LABS: Hemoglobin 9.5 GM/DL (12.0-16.0); Platelet Count 269 T/CUMM (130-400); Red Blood Count 3.08 MC/CUMM (3.8-5.5)
[2018-09-03 07:09] LABS: Albumin 2.9 G/DL (3.4-5.0); Bilirubin,Total 0.6 MG/DL (0.2-1.0); Calcium 8.6 MG/DL (8.5-10.1); Osmolality,Calculated 276.8 MOS/KG (273-304); Potassium 3.6 MMOL/L (3.5-5.1); Risk Ratio 5.83; Thyroid Stimulating Hormone 0.396 uIU/ml (0.358-3.74); Total Protein 6.6 G/DL (6.4-8.3); VLDL CHOLESTEROL 18.8 MG/DL
[2018-09-03] MEDS ORDERED: MAGNESIUM SULF RIDER 2 GM in PREMIX 1 EACH IV ONE (08:00)
[2018-09-03] MEDS: GABAPENTIN 100 MG CAPSULE PO SCH (08:29)
[2018-09-03] MEDS ORDERED: MULTIVITAMIN (CENTRUM) TABLET PO SCH (09:00)
[2018-09-03] MEDS ORDERED: FOLIC ACID 1 MG TABLET PO SCH (09:00)
[2018-09-03 11:57] VITALS: BP 125/82
== END 2018-09-03 14:19 | disposition home or self-care (01) ==
LOC: N.ED 13:32 → N.EDINP 13:32 → N.2E 18:15
PROVIDERS: ADMIT Internal Medicine Geriatric Medicine; ATTEND Internal Medicine Geriatric Medicine

== ENCOUNTER 2019-11-09 07:43 | Observation (INO) ==
[2019-11-09] MEDS ORDERED: SODIUM CHLORIDE 0.9% 1,000 ML IV STA ×2 (08:20→10:23)
[2019-11-09 08:58] LABS: Basophils % 0.2 % (0.0-0.8); Eosinophils % 0.1 % (0.00-10.9); Hemoglobin 11.2 GM/DL (12.0-16.0); Immature Granulocytes % 0.4 %; Immature Granulocytes Absolute 0.04 #; Lymphocytes # 2.3 10*3/uL (1.4-4.0); Mean Corpuscular HGB Conc 33.9 GM/DL (32-36); Mean Corpuscular Volume 92.2 FL (87-102); Mean Platelet Volume 10.7 FL (9.6-12.0); Monocytes % 7.9 % (1.7-12.7); Neutrophils % 66.4 % (38.7-73.9); Platelet Count 231 T/CUMM (130-400); Red Blood Count 3.58 MC/CUMM (3.8-5.5); Red Cell Distribution Width 13.2 % (9.3-17.3); White Blood Count 9.3 T/CUMM (4-12)
[2019-11-09 09:09] LABS: Albumin 4.4 G/DL (3.4-5.0); Bilirubin,Total 0.7 MG/DL (0.2-1.0); Calcium 9.4 MG/DL (8.5-10.1); Osmolality,Calculated 286.6 MOS/KG (273-304); Total Protein 8.4 G/DL (6.4-8.3)
[2019-11-09] MEDS ORDERED: INSULIN LISPRO 100 UNIT/ML SUBCUT STA (09:10)
[2019-11-09] MEDS ORDERED: GLUCAGON 1 MG VIAL IM PRN (10:24)
[2019-11-09] MEDS ORDERED: ONDANSETRON 4 MG/2 ML VIAL IV PRN (10:24)
[2019-11-09] MEDS ORDERED: DEXTROSE 50% 25 GM/50 ML VIAL IV PRN (10:24)
[2019-11-09] MEDS ORDERED: ACETAMINOPHEN 325 MG TABLET PO PRN (10:24)
[2019-11-09] MEDS: SODIUM CHLORIDE 0.45% 1,000 ML IV SCH ×2 (11:16→22:03)
[2019-11-09 11:21] LABS: Apearance,Urine CLEAR (Clear); Bacteria,Urine Occasional /HPF (Few); Bilirubin,Urine Negative (Negative); Blood, Urine Negative (Negative); Glucose,Urine (UA) >=500 mg/dL (Negative); Hyaline Casts,Urine 1 /LPF (0-3); Ketones,Urine Negative (Negative); Mucus,Urine Occasional /LPF (Occasional); Nitrite,Urine Negative (Negative); Protein,Urine Negative; RBC,Urine 1 /HPF (0-4); Squamous Epithelial Cell,Urine Occasional /HPF (0-10); Urine Color Yellow (Yellow); Urine Specific Gravity 1.012 (1.001-1.035); Urine Urobilinogen < 2.0 EU/DL (0.2-1.0); WBC,Urine 2 /HPF (0-6)
[2019-11-09] MEDS ORDERED: FLUTICASONE 50 MCG NASAL SPRAY 16 GM BOTTLE BOTH NARES PRN (12:57)
[2019-11-09] MEDS: INSULIN LISPRO 100 UNIT/ML SUBCUT SCH ×3 (13:16→21:12)
[2019-11-09] MEDS: GABAPENTIN 100 MG CAPSULE PO SCH ×2 (14:27→21:10)
[2019-11-09] MEDS ORDERED: ATORVASTATIN 40 MG TABLET PO SCH (21:00)
[2019-11-09] MEDS: INSULIN GLARGINE 100 UNIT/ML SUBCUT SCH (21:12)
[2019-11-10] MEDS: SODIUM CHLORIDE 0.45% 1,000 ML IV SCH ×2 (02:30→06:30)
[2019-11-10 06:10] LABS: Osmolality,Calculated 276.2 MOS/KG (273-304)
[2019-11-10 08:00] VITALS: BP 126/79
[2019-11-10] MEDS ORDERED: CITALOPRAM 40 MG TABLET PO SCH (09:00)
[2019-11-10] MEDS ORDERED: MULTIVITAMIN (CENTRUM) TABLET PO SCH (09:00)
[2019-11-10] MEDS ORDERED: PANTOPRAZOLE 40 MG TABLET PO SCH (09:00)
[2019-11-10] MEDS ORDERED: lisinopriL 20 MG TABLET PO SCH (09:00)
[2019-11-10] MEDS ORDERED: LORATADINE 10 MG TABLET PO SCH (09:00)
[2019-11-10] MEDS ORDERED: buPROPion SR 100 MG TABLET PO SCH (09:00)
[2019-11-10] MEDS: INSULIN GLARGINE 100 UNIT/ML SUBCUT SCH (09:03)
[2019-11-10] MEDS: GABAPENTIN 100 MG CAPSULE PO SCH (09:03)
[2019-11-10] MEDS: INSULIN LISPRO 100 UNIT/ML SUBCUT SCH (09:04)
== END 2019-11-10 12:27 | disposition home or self-care (01) ==
LOC: N.EDINP 07:43 → N.ED 07:43 → SUATTDRO 10:24 → N.EDINP 11:40 → N.2W 11:43
PROVIDERS: ADMIT Internal Medicine; ATTEND Internal Medicine Cardiovascular Disease